=== PATIENT | male | born 1960 | race Caucasian/White ===

== ENCOUNTER 2016-07-29 08:29 | Day surgery (SDC) | payer BC ==
[~2016-07-29] VITALS: Ht 180.3 cm; Wt 97.5 kg
[~2016-07-29 08:29] MED LIST: ASPIR 8181 M1 PO; CIALIS10 MG PO; COLACE100 MG PO; ESOMEPRAZOLE MA40 MG PO; FLEXERIL10 MG PO; FLOMAX0.4 MG PO; HYDROCODON-ACE1 EAC7 PO; IBUPROFEN200 M1 PO; KRILL OIL 3001 EACH PO; KRILL OIL500 MG PO; LISINOPRIL20 MG PO; LISINOPRIL40 MG PO; MILK THISTLE200 M1 PO; MOTRIN600 MG PO; NEXIUM40 MG PO; OMEPRAZOLE40 M1 PO; TAMSULOSIN HCL0.4 MG PO; VITAMIN D35000 UNIT PO; ZOFRAN ODT4 MG PO
[2016-07-29 09:15] VITALS: BP 134/89
[2016-07-29] MEDS ORDERED: COLACE100 MG PO (12:38)
[2016-07-29] MEDS ORDERED: PERCOCET 5/31 TABLET PO (12:38)
[2016-07-29 14:05] VITALS: BP 124/78
[2016-07-29 15:15] VITALS: BP 113/71
== END 2016-07-29 15:45 | disposition home or self-care (01) ==
LOC: SDC 08:29
PROC: 0FT44ZZ Resection of Gallbladder, Percutaneous Endoscopic Approach (ICD-10-PCS; principal; 2016-07-29)
DX: K80.10 Calculus of gallbladder with chronic cholecystitis without obstruction (principal); I10 Essential (primary) hypertension; K76.0 Fatty (change of) liver, not elsewhere classified; K21.9 Gastro-esophageal reflux disease without esophagitis; F17.200 Nicotine dependence, unspecified, uncomplicated; Z82.49 Family history of ischemic heart disease and other diseases of the circulatory system; Z79.82 Long term (current) use of aspirin; Z80.3 Family history of malignant neoplasm of breast; Z88.5 Allergy status to narcotic agent; Z88.8 Allergy status to other drugs, medicaments and biological substances
CPT/HCPCS: 88304; J0131; J0690; J1100; J1170; J2250; J2405; J3010